=== PATIENT | female | born 1985 | race Caucasian/White ===

== ENCOUNTER 2017-12-04 15:18 | Emergency (ER) | payer BC ==
[2017-12-04] MEDS ORDERED: NS 0.9% 1000 ML* 1,000 ML IV ONE (15:59)
[2017-12-04] MEDS ORDERED: ceFAZolin 1 GM in Dextrose (*) 1 GM/50 ML BAG IVPB ONE (16:06)
[2017-12-04] MEDS ORDERED: Morphine INJ* 4 MG/ML 1 ML SYRINGE (NEW SYRINGE VERSION) IV ONE (16:27)
[2017-12-04] MEDS ORDERED: Metoclopramide IV* 5 MG/ML 2 ML VIAL IV ONE (16:27)
--- NOTE | 2017-12-04 16:27 | ED ---
Lower Extremity - HPI Summary HPI Summary: Pt here w/ Lt LE injury after falling off of a barrel today while at a win[place] - reports she was trying to take a picture and fell off of the barrel which then rolled onto her leg. She is unable to bear weight and has laxity with movement. Noticed bleeding through her pants. Denies numbness, tingling - can wiggle toes , has sensation and a pulse. No other injuries to report. Tetanus vaccine is UTD (has had within past couple of years). NOTE: 1 week late for menstrual period - will check status. - History of Current Complaint Chief Complaint: EDExtremityLower Stated Complaint: Lt ANKLE/LEG INJURY Time Seen by Provider: 12/04/17 15:31 Hx Obtained From: Patient, Family/Locum Tenens - , mother Pain Intensity: 7 - Allergies/Home Medications Allergies/Adverse Reactions: Allergies Allergy/AdvReac Type Severity Reaction Status Date / Time No Known Allergies Allergy Verified 12/04/17 15:51 Home Medications: Home Medications NK [No Home Medications Reported] 12/04/17 [History Confirmed 12/04/17] PMH/Surg Hx/FS Hx/Imm Hx Previously Healthy: Yes Endocrine/Hematology History: Denies: Hx Anticoagulant Therapy, Hx Blood Disorders Infectious Disease History: No Infectious Disease History: Denies: Hx of Known/Suspected MRSA, Traveled Outside the [place] in Last 30 Days - Family History Known Family History: Positive: None - Social History Occupation: Employed Full-time - LABOR/[employer] Lives: With Family - to Alcohol Use: Weekly Hx Substance Use: No Substance Use Type: Reports: None Hx Tobacco Use: No Smoking Status (MU): Never Smoked Tobacco Review of Systems Constitutional: Negative Negative: Fatigue Cardiovascular: Negative Negative: Chest Pain Respiratory: Negative Negative: Shortness Of Breath Negative: Vomiting, Nausea Positive: no symptoms reported Positive: Arthralgia, Myalgia, Decreased ROM Skin: Other - LLE bleeding Neurological: Negative Psychological: Normal All Other Systems Reviewed And Are Negative: Yes Physical Exam Triage Information Reviewed: Yes Vital Signs On Initial Exam: Initial Vitals Temp Pulse Resp BP Pulse Ox 98.5 F 128 16 114/70 100 12/04/17 15:40 12/04/17 15:40 12/04/17 15:40 12/04/17 15:40 12/04/17 15:40 Vital Signs Reviewed: Yes Appearance: Positive: Well-Nourished - appears mildly intoxicated - eyes glassy , lips dry, wine stained - coherent and no slurred speech, Pain Distress - with movement of leg - otherwise, okay with immobilization Skin: Positive: Warm, Skin Color Reflects Adequate Perfusion, Other - 1.75 cm lac over distal postero-medial LLE - eliptical - oozing blood - no debris identified - bleeding controlled w/ pressure Head/Face: Positive: Normal Head/Face Inspection Eyes: Positive: Normal, EOMI, LILY ENT: Positive: Normal ENT inspection, Hearing grossly normal, Pharynx normal Respiratory/Lung Sounds: Positive: Breath Sounds Present Cardiovascular: Positive: Pulses are Symmetrical in both Upper and Lower Extremities Musculoskeletal: Positive: Other - can move Lt toes - gross deformity of distal tibial region w/ >1 cm linear bloody lac over Lt posterior/medial distal calf Neurological: Positive: Alert, Oriented to Person Place, Time, CN Intact II-III , Other - sensory intact - motor of toes intact - pain w/ ankle movement Psychiatric: Positive: Normal Procedures - Procedure Summary Procedure Summary: wound cleansed with antiseptic spray, dried and dressed with xeroform and gauze - hemodynamically stable - pt tolerated well - Splinting Location: LLE Hand-Made Type: fiberglass Splint: posterior walking - +sugar tong Pre-Proc Neuro Vasc Exam: normal Post-Proc Neuro Vasc Exam: normal Diagnostics - Vital Signs Vital Signs Temp Pulse Resp BP Pulse Ox 12/04/17 15:40 98.5 F 128 16 114/70 100 - Laboratory Result Diagrams: 12/04/17 16:00 12/04/17 16:00 Lab Statement: Any lab studies that have been ordered have been reviewed, and results considered in the medical decision making process. Re-Evaluation - Re-Evaluation First Eval Change: Improved - pain improved somewhat but still has a lot of pain in LE - will add morphine 2mg through IV - pt has low BP despite 1L IV fluids but is starting to come back up to baseline Lower Extremity Course/Dx - Course Course Of Treatment: patient presents with fall from a wine barrel earlier today resulting in wine barrel crushing her left lower extremity. She is found to have open transverse displaced fractures of the distal aspects of both her tibia and fibula of LLE. She has a wound in the distal medial/posterior aspect of her LLE that is about about 2cm in length and oozing - clean w/o debris. Her wound was cleaned with antiseptic and dressed with xeroform - this was not closed with sutures as bleeding is controlled and she will require clean out at [facility] prior to surgery. Her LE was then splinted with posterior long walking and stirrup fiberglass splints. She received 1 gram of cefazolin as well as 1L NS IV and pain control via morphine and reglan. Pt tolerated procedures well and transfered to [facility] in stable condition. Called Javy Cantrell and David who both reccomend transfer. She requires tx by an orthopedic trauma specialist and was accepted by Dr. Ortiz at [facility]. Pt is aware of her and has revealed this to mom and prior to transition from [facility] to [facility]. - Diagnoses Provider Diagnoses: Open displaced transverse fracture of shaft of left fibula, Open displaced transverse fracture of shaft of left tibia, - Physician Notifications Discussed Care Of Patient With: Robert Nichols Discharge - Sign-Out/Discharge Documenting (check all that apply): Discharge - Discharge Plan Condition: Stable Disposition: TRANS HIGHER LVL OF CARE FAC Referrals: No Primary Care Phys,NOPCP [Primary Care Provider] - - Billing Disposition and Condition Condition: STABLE Disposition: EMTPERLITA
[2017-12-04 16:29] LABS: ABS Basophils 0.1 10^3/ul (0-0.2); ABS Eosinophils 0.1 10^3/ul (0-0.6); ABS Lymphocytes 2.3 10^3/ul (1.0-4.8); ABS Monocytes 0.4 10^3/ul (0-0.8); ABS Nucleated RBC 0 10^3/ul; Eosinophil % 0.6 % (0-6); Hematocrit 42 % (35-47); Hemoglobin 14.1 g/dl (12.0-16.0); Lymphocyte % 23.4 % (25-47); Mean Corpuscular HGB Conc 34 g/dl (31-36); Mean Corpuscular Hemoglobin 33 pg (27-31); Mean Corpuscular Volume 96 fL (80-97); Mean Platelet Volume 8.3 um3 (7.4-10.4); Nucleated Red Blood Cells % 0; Platelet Count 280 10^3/ul (150-450); Red Blood Count 4.33 10^6/ul (4.0-5.4); Red Cell Distribution Width 13 % (10.5-15); White Blood Count 9.9 10^3/ul (3.5-10.8)
--- NOTE | 2017-12-04 16:34 | RAD ---
HISTORY: Trauma, open fracture, left lower leg COMPARISONS: None VIEWS: 4, Frontal and lateral views of the left foreleg FINDINGS: BONE DENSITY: Normal. BONES: There are transverse displaced fractures of the distal tibial and fibular diaphyses. There is minimal varus angulation of the distal fragments with respect to the proximal fragments. JOINTS: There is no arthropathy. ALIGNMENT: There is no dislocation. SOFT TISSUES: There is subcutaneous emphysema consistent with the history of open fracture. OTHER FINDINGS: None. IMPRESSION: TRANSVERSE DISPLACED FRACTURES OF THE DISTAL TIBIA AND FIBULAR DIAPHYSES. THERE IS MINIMAL VARUS ANGULATION OF THE DISTAL FRAGMENTS.
[2017-12-04] MEDS ORDERED: Morphine INJ* 2 MG/ML 1 ML CARPUJECT IV ONE ×2 (17:57→19:02)
--- NOTE | 2017-12-04 18:04 | PN ---
I, Ambar Smith, scribed for Robert Nichols MD on 12/04/17 at 1753 . Progress Note - Progress Note Date of Service: 12/04/17 Note: Distal pulses were intact. She has an open lower extremity fracture requiring orthopedic trauma consultation and treatment. The documentation as recorded by the scribeSarah Emily accurately reflects the service I personally performed and the decisions made by Magdalena sears Jerry, MD.
[2017-12-04] MEDS ORDERED: Morphine INJ* 2 MG/ML 1 ML CARPUJECT ONE (19:04)
[2017-12-05 12:19] VITALS: BP 113/58
== END 2017-12-04 19:09 | disposition short-term general hospital (02) ==
LOC: ED 15:18
DX: S82.422B Displaced transverse fracture of shaft of left fibula, initial encounter for open fracture type I or II (principal); S82.222B Displaced transverse fracture of shaft of left tibia, initial encounter for open fracture type I or II; W17.89XA Other fall from one level to another, initial encounter; Y93.89 Activity, other specified; Y92.89 Other specified places as the place of occurrence of the external cause; Z32.01 Encounter for pregnancy test, result positive
CPT/HCPCS: 36415; 80053; 84702; 85025; 86850; 86900; 86901; 96365; 96375; 96376; 99283; J0690; J2270; J2765